=== PATIENT | male | born 1950 | race African-American/Black ===

== ENCOUNTER 2016-08-13 10:02 | Emergency (ER) | payer MEDICARE, MEDICAID ==
[2016-08-13 10:37] LABS: BASO % 0.3 % (0.0-1.0); EOS # 0.1 K/mm3 (0.0-0.50); EOS % 2.2 % (0.0-3.0); LARGE UNSTAINED CELL # 0.1 K/mm3 (0.0-0.4); LARGE UNSTAINED CELL % 2.1 % (0.0-4.0); LYMPH # 1.9 K/mm3 (1.5-4.5); LYMPH % 34.4 % (24.0-44.0); MEAN CORPUSCULAR HEMOGLOBIN 30.9 pg (27.0-33.0); MEAN CORPUSCULAR HGB CONC 32.8 g/dl (32.0-36.5); MONO # 0.3 K/mm3 (0.0-0.8); MONO % 4.5 % (0.0-5.0); NEUTROPHILS # 3.2 K/mm3 (1.8-7.7); NEUTROPHILS % 56.4 % (36.0-66.0); PLATELET COUNT, AUTOMATED 312 k/mm3 (150-450); RED CELL DISTRIBUTION WIDTH 14.2 % (11.5-14.5); WHITE BLOOD COUNT 5.6 K/mm3 (4.0-10.0)
[2016-08-13 11:05] LABS: ALBUMIN 4.1 GM/DL (3.2-5.2); ALBUMIN/GLOBULIN RATIO 1.08 (1.00-1.93); ALKALINE PHOSPHATASE 90 U/L (45-117); ALT/SGPT 21 U/L (12-78); ANION GAP 5 MEQ/L (8-16); AST/SGOT 12 U/L (15-37); BILIRUBIN,DIRECT 0.1 MG/DL (0.0-0.2); BILIRUBIN,TOTAL 0.5 MG/DL (0.2-1.0); BLOOD UREA NITROGEN 7 MG/DL (7-18); CALCIUM LEVEL 9.1 MG/DL (8.8-10.2); CARBON DIOXIDE LEVEL 32 MEQ/L (21-32); CHLORIDE LEVEL 105 MEQ/L (98-107); GLOMERULAR FILTRATION RATE > 60.0 (>49); GLUCOSE, FASTING 106 MG/DL (80-110); SODIUM LEVEL 142 MEQ/L (136-145); TOTAL PROTEIN 7.9 GM/DL (6.4-8.2)
[2016-08-13] MEDS ORDERED: ISOVUE-370 76% 100ML VIAL (Q9967) As Ordered ONE (11:07)
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
--- NOTE | 2016-08-13 13:33 | REP ---
CT ABDOMEN AND PELVIS WITH IV CONTRAST: 08/13/2016. Clinical history: Abdominal pain. Mid abdominal symptoms. Comparison: CT 12/13/2012. Technique: No oral contrast per request. Bolus of 100 mL as Isovue 370 given scanning through the abdomen pelvis with coronal and sagittal reconstructions. CT abdomen: Lung bases are clear. Heart is not enlarged. There is no pericardial thickening or effusion. I see no hiatal hernia. There is no hepatosplenomegaly, focal hepatic or splenic mass nor adjacent ascites. There is no biliary dilatation. There are multiple surgical clips from prior cholecystectomy. Pancreas grossly intact without peripancreatic inflammatory change or fluid. Adrenal glands without mass. Kidneys show function without obstruction, mass, stone, cyst or perinephric fluid. The aorta has diffuse atherosclerotic calcifications. No aneurysm or dissection. No periaortic or other retroperitoneal pathologic sized lymphadenopathy. Scattered stool and gas in the left colon, more in the transverse and right colon, but no colitis or diverticulitis. No visible appendix. Small bowel loops are not dilated but the mid and distal small bowel loops are all fluid-filled which may reflect some gastroenteritis or ileus. There is no definite obstruction. I see no mesenteric infiltration. No compression fractures in the lumbar and lower thoracic spine with very minimal degenerative change. No spondylolysis. Visualized ribs intact. CT pelvis: The bony hips, pelvis, sacrum, SI joints and lumbosacral junction show minor degenerative change but no destructive lesion, fracture or other acute finding. Bladder shows no wall thickening mass or stone. Distal ureters in the pelvis without dilatation or stone. Prostate not enlarged. Small bowel loops in the pelvis fluid-filled but not abnormally dilated and seen all the way extending to the ileocecal valve. Vascular calcification and iliac vessels without aneurysm. No ventral or inguinal hernia. Intrinsic and extrinsic pelvic hip, buttock and proximal thigh musculature symmetric and unremarkable. Impression: 1. Small bowel loops fluid-filled with no dilatation or air-fluid levels. These suggest gastroenteritis or ileus. No infiltration of the mesentery or mesenteric adenopathy. 2. There is no free air or perforation, generalized ascites, abscess or mass. 3. Prior cholecystectomy noted. The liver, spleen, adrenal glands, kidneys, pancreas, stomach, colon and bladder unremarkable. No renal, ureteral or bladder stone. No ascites, free air or acute bony finding. Signed by Romario Gorman MD 08/13/2016 07:36 P
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
== END 2016-08-13 12:29 | disposition home or self-care (01) ==
LOC: M ED 10:02
DX: K56.7 Ileus, unspecified (principal); E78.00 Pure hypercholesterolemia, unspecified; K21.9 Gastro-esophageal reflux disease without esophagitis; F17.210 Nicotine dependence, cigarettes, uncomplicated; Z79.899 Other long term (current) drug therapy
CPT/HCPCS: 36415; 74177; 80048; 80076; 81001; 83690; 85025; 99284; Q9967

== ENCOUNTER → 2016-12-21 | Outpatient (REF) | payer MEDICARE, MEDICAID ==
[2016-12-21 10:20] LABS: ALBUMIN 3.7 GM/DL (3.2-5.2); ALKALINE PHOSPHATASE 74 U/L (45-117); ALT/SGPT 27 U/L (12-78); ANION GAP 7 MEQ/L (8-16); AST/SGOT 19 U/L (15-37); BILIRUBIN,TOTAL 0.7 MG/DL (0.2-1.0); BLOOD UREA NITROGEN 6 MG/DL (7-18); CALCIUM LEVEL 9.2 MG/DL (8.8-10.2); CARBON DIOXIDE LEVEL 28 MEQ/L (21-32); CHLORIDE LEVEL 106 MEQ/L (98-107); CHOLESTEROL LEVEL 146 MG/DL (<200); CREATININE FOR GFR 0.98 MG/DL (0.70-1.30); GLOMERULAR FILTRATION RATE > 60.0 (>49); GLUCOSE, FASTING 95 MG/DL (80-110); POTASSIUM SERUM 4.1 MEQ/L (3.5-5.1); SODIUM LEVEL 141 MEQ/L (136-145); TOTAL PROTEIN 7.4 GM/DL (6.4-8.2); TRIGLYCERIDES LEVEL 85 MG/DL (<150)
== END ==
LOC: M SFHCPLAZ 07:59
PROVIDERS: ATTEND Physician Assistant
DX: R73.01 Impaired fasting glucose (principal); E78.4 Other hyperlipidemia; Z12.5 Encounter for screening for malignant neoplasm of prostate
CPT/HCPCS: 80053; 80061; 83036; G0103

== ENCOUNTER → 2017-03-15 | Outpatient (CLI) | payer MEDICARE, MEDICAID ==
[2017-03-15 15:20] LABS: BASO % 0.2 % (0.0-1.0); EOS # 0.1 K/mm3 (0.0-0.50); EOS % 1.4 % (0.0-3.0); LARGE UNSTAINED CELL # 0.1 K/mm3 (0.0-0.4); LARGE UNSTAINED CELL % 2.1 % (0.0-4.0); LYMPH # 1.8 K/mm3 (1.5-4.5); LYMPH % 37.4 % (24.0-44.0); MEAN CORPUSCULAR HEMOGLOBIN 32.3 pg (27.0-33.0); MEAN CORPUSCULAR HGB CONC 34.3 g/dl (32.0-36.5); MONO # 0.3 K/mm3 (0.0-0.8); MONO % 5.4 % (0.0-5.0); NEUTROPHILS # 2.6 K/mm3 (1.8-7.7); NEUTROPHILS % 53.4 % (36.0-66.0); PLATELET COUNT, AUTOMATED 237 k/mm3 (150-450); RED CELL DISTRIBUTION WIDTH 14.9 % (11.5-14.5); WHITE BLOOD COUNT 4.8 K/mm3 (4.0-10.0)
[2017-03-15 15:23] LABS: ALBUMIN/GLOBULIN RATIO 1.14 (1.00-1.93); ALKALINE PHOSPHATASE 70 U/L (45-117); ALT/SGPT 26 U/L (12-78); AMYLASE 50 U/L (25-115); ANION GAP 8 MEQ/L (8-16); AST/SGOT 16 U/L (15-37); BILIRUBIN,TOTAL 0.9 MG/DL (0.2-1.0); BLOOD UREA NITROGEN 13 MG/DL (7-18); CARBON DIOXIDE LEVEL 29 MEQ/L (21-32); CHLORIDE LEVEL 106 MEQ/L (98-107); CREATININE FOR GFR 0.97 MG/DL (0.70-1.30); GLOMERULAR FILTRATION RATE > 60.0 (>49); GLUCOSE, FASTING 96 MG/DL (80-110); SODIUM LEVEL 143 MEQ/L (136-145); TOTAL PROTEIN 7.5 GM/DL (6.4-8.2)
== END ==
LOC: M LAB 14:29
PROVIDERS: ATTEND Internal Medicine Gastroenterology
DX: R63.4 Abnormal weight loss (principal)

== ENCOUNTER → 2017-03-17 | Outpatient (CLI) | payer MEDICARE, MEDICAID ==
[~2017-03-17] MED LIST: GASTROGRAFIN SOLUTION 30ML (Q9963) As Ordered ONE; ISOVUE-370 76% 100ML VIAL (Q9967) As Ordered ONE
--- NOTE | 2017-03-17 17:40 | REP ---
CT abdomen and pelvis without and with IV contrast: With oral contrast. History: Abnormal weight loss and epigastric pain. Comparison study: August 13, 2016. CT contrast dose: 100 ml of Isovue 370. CT findings: Digital preliminary unishear operator radiograph demonstrates clothing artifact and clips in the right upper quadrant of the abdomen. The lung bases are clear on axial CT images. There is a left lower lobe bullous and there are mild emphysematous changes in the right lower lobe which are stable findings when compared with the prior CT study. The liver and the spleen are normal in size and homogeneous in texture on pre and post contrast CT images. No pancreatic lesion is seen. No adrenal mass is observed. The kidneys are morphologically intact and enhance symmetrically. Atherosclerotic vascular calcification is seen in a normal caliber aorta. No retroperitoneal mass or adenopathy is seen. Small bowel loops are unremarkable. There is moderate stool in the transverse colon and gas is seen in a loop of sigmoid colon. No obstructive lesion is seen. No free air is noted. A normal appendix is again noted in the right mid pelvis. No CT evidence of appendicitis. No free air or abscess is seen. No abdominal wall defect is observed. No bony destructive lesion is seen. Impression: Status post cholecystectomy. Moderate stool and gas in the colon. No obstructive lesion. Otherwise unremarkable. Normal appendix seen. Signed by Gonzalez Thakur MD 03/20/2017 07:46 A
== END ==
LOC: M RAD 14:59
PROVIDERS: ATTEND Internal Medicine Gastroenterology
DX: R63.4 Abnormal weight loss (principal); R10.13 Epigastric pain
CPT/HCPCS: 74178; Q9963; Q9967

== ENCOUNTER → 2018-09-20 | Outpatient (CLI) | payer MEDICARE, MEDICAID ==
--- NOTE | 2018-09-21 16:24 | REP ---
Clinical: Lung screening. History of nicotine dependence. Comparison: None Technique: Axial low-dose noncontrast images from the thoracic inlet to the upper abdomen using lung screening technique. Findings: The lung steinberg are well-aerated. Minimal scattered subpleural fibrosis and minimal chronic age-related interstitial changes are appreciated. Few small calcified annual material are also identified. No consolidation, significant nodule or mass lesion is appreciated. No pleural effusion/reaction or pneumothorax. Tracheobronchial tree is patent. Mediastinum demonstrates mild atherosclerotic changes of the coronary arteries without cardiomegaly. Impression: Lung-RADS category II. No nodule or suspicious abnormality. Management recommendations include annual low-dose CT evaluation. Electronically Signed by Mehdi Barkley MD 09/21/2018 04:15 P
== END ==
LOC: M RAD 08:50
PROVIDERS: ATTEND Family Medicine
DX: Z12.2 Encounter for screening for malignant neoplasm of respiratory organs (principal); Z87.891 Personal history of nicotine dependence; J84.10 Pulmonary fibrosis, unspecified; I25.10 Atherosclerotic heart disease of native coronary artery without angina pectoris

== ENCOUNTER → 2018-11-13 | Outpatient (CLI) | payer MEDICARE, MEDICAID ==
--- NOTE | 2018-11-13 09:20 | REP ---
Abdominal wall ultrasound for incisional hernia: Ultrasonography is performed over a midline anterior abdominal wall surgical scar, also including focal area of pain superior to the surgical scar. Ultrasound imaging is performed without and with Valsalva. No hernia is identified by ultrasound. Impression: No hernia is identified related to the anterior abdominal wall surgical scar by ultrasound. Electronically Signed by Ed Fiore MD 11/13/2018 09:12 A
== END ==
LOC: M RAD 07:55
PROVIDERS: ATTEND Physician Assistant Medical
DX: R10.13 Epigastric pain (principal)

== ENCOUNTER 2018-12-20 08:56 | Day surgery (SDC) | payer MEDICARE, MEDICAID ==
[~2018-12-20] VITALS: Ht 182.9 cm; Wt 70.3 kg
[~2018-12-20 08:56] MED LIST changes: +ATOR80TA59; +DICY10CA13; -GASTROGRAFIN SOLUTION 30ML (Q9963) As Ordered ONE; -ISOVUE-370 76% 100ML VIAL (Q9967) As Ordered ONE; +OMEP-218; +SUCR1TAB56
[2018-12-20] MEDS ORDERED: NS 1,000 ML IV ONE (09:30)
[2018-12-20] MEDS ORDERED: PROPOFOL 500 MG/50 ML VIAL As Ordered ONE (10:15)
[2018-12-20] MEDS ORDERED: fentaNYL 100 MCG/2 ML INJECTION (J3010) As Ordered ONE (10:15)
[2018-12-20] MEDS ORDERED: LIDOCAINE 2% INJ 100 MG/5 ML SDV (FOR ANES.) As Ordered ONE (10:15)
--- NOTE | 2018-12-20 10:25 | ROOR ---
Patient Name: Gavin Farmer Procedure Date: 12/20/2018 10:08 AM Date of : 1950 Age: 68 Room: [facility] Gender: Male Note Status: Finalized Procedure: Upper GI endoscopy Indications: Epigastric abdominal pain, Heartburn Providers: Oswaldo VALDES MD Referring MD: Pawan LA MD Requesting Provider: Medicines: Monitored Anesthesia Care Complications: No immediate complications. Procedure: Pre-Anesthesia Assessment: - The heart rate, respiratory rate, oxygen saturations, blood pressure, adequacy of pulmonary ventilation, and response to care were monitored throughout the procedure. The Endoscope was introduced through the mouth, and advanced to the second part of duodenum. The upper GI endoscopy was accomplished without difficulty. The patient tolerated the procedure well. Findings: The examined esophagus was normal. Three diminutive sessile polyps were found in the gastric antrum. Biopsies were taken with a cold forceps for histology. The exam of the stomach was otherwise normal. The examined duodenum was normal. Impression: - Normal esophagus. - Three tiny gastric polyps. Biopsied. - Small intermittent hiatal hernia. - Otherwise normal stomach. - Normal examined duodenum. Recommendation: - Observe patient's clinical course. - Follow an antireflux regimen. Oswaldo Valdes MD Oswaldo VALDES MD 12/20/2018 10:24:27 AM Electronically signed by Oswaldo VALDES MD Number of Addenda: 0 Note Initiated On: 12/20/2018 10:08 AM Estimated Blood Loss: Estimated blood loss: none.
[2018-12-20] MEDS ORDERED: ePHEDrine SULFATE 25 MG/5 ML(5MG/ML) SYRINGE As Ordered ONE (10:32)
--- NOTE | 2018-12-20 10:42 | ROOR ---
Patient Name: Gavin Farmer Procedure Date: 12/20/2018 10:09 AM Date of : 1950 Age: 68 Room: [facility] Gender: Male Note Status: Finalized Procedure: Colonoscopy Indications: High risk colon cancer surveillance: Personal history of colonic polyps, Last colonoscopy: October 2013 Providers: Oswaldo VALDES MD Referring MD: Pawan LA MD Requesting Provider: Medicines: Monitored Anesthesia Care Complications: No immediate complications. Procedure: Pre-Anesthesia Assessment: - The heart rate, respiratory rate, oxygen saturations, blood pressure, adequacy of pulmonary ventilation, and response to care were monitored throughout the procedure. The Colonoscope was introduced through the anus and advanced to the terminal ileum, with identification of the appendiceal orifice and IC valve. The colonoscopy was performed without difficulty. The patient tolerated the procedure well. The quality of the bowel preparation was good. Findings: The perianal and digital rectal examinations were normal. A 5 mm polyp was found in the hepatic flexure. The polyp was sessile. The polyp was removed with a cold snare. Resection and retrieval were complete. Small Internal Hemorrhoids. The exam was otherwise without abnormality. Impression: - One 5 mm polyp at the hepatic flexure, removed with a cold snare. Resected and retrieved. - Small Internal Hemorrhoids. - The examination was otherwise normal. Recommendation: - Repeat colonoscopy in 5 years for surveillance. Oswaldo Valdes MD Oswaldo VALDES MD 12/20/2018 10:42:23 AM Electronically signed by Oswaldo VALDES MD Number of Addenda: 0 Note Initiated On: 12/20/2018 10:09 AM Estimated Blood Loss: Estimated blood loss: none.
[2018-12-20 11:05] VITALS: BP 108/61
== END 2018-12-20 11:12 | disposition home or self-care (01) ==
LOC: M OPP 08:56
PROVIDERS: ATTEND Internal Medicine Gastroenterology
DX: Z12.11 Encounter for screening for malignant neoplasm of colon (principal); Z86.010 Personal history of colon polyps; D12.3 Benign neoplasm of transverse colon; K64.8 Other hemorrhoids; K31.7 Polyp of stomach and duodenum; R10.13 Epigastric pain; R12 Heartburn; F17.210 Nicotine dependence, cigarettes, uncomplicated; Z79.899 Other long term (current) drug therapy
CPT/HCPCS: 43239; 45385; 88305; J3010

== ENCOUNTER → 2019-02-07 | Outpatient (REF) | payer MEDICARE, MEDICAID ==
[2019-02-07 13:34] LABS: CHOLESTEROL LEVEL 129 MG/DL (<200); CHOLESTEROL RISK RATIO 3.394 (<5); HDL CHOLESTEROL 38 MG/DL (>40); LDL CHOLESTEROL 77 MG/DL (<100); NON-HDL-C 91 MG/DL; TRIGLYCERIDES LEVEL 69 MG/DL (<150)
[2019-02-07 13:46] LABS: H PYLORI QUALITATIVE IgG DETECTED (NEGATIVE)
[2019-02-07 14:11] LABS: HEMOGLOBIN A1c 6.2 %
== END ==
LOC: M SFHCPLAZ 09:45
PROVIDERS: ATTEND Family Medicine
DX: R10.13 Epigastric pain (principal); E78.5 Hyperlipidemia, unspecified; R73.01 Impaired fasting glucose
CPT/HCPCS: 36415; 80061; 83036; 86677; G0463

== ENCOUNTER → 2019-03-14 | Outpatient (REF) | payer MEDICARE, MEDICAID ==
[2019-03-14 12:55] LABS: HEMATOCRIT 42.6 % (42.0-52.0); HEMOGLOBIN 14.3 g/dl (13.5-17.5); MEAN CORPUSCULAR HEMOGLOBIN 32.1 pg (27.0-33.0); MEAN CORPUSCULAR HGB CONC 33.6 g/dl (32.0-36.5); MEAN CORPUSCULAR VOLUME 95.5 fl (80.0-96.0); PLATELET COUNT, AUTOMATED 234 10^3/uL (150-450); RED BLOOD COUNT 4.46 10^6/uL (4.30-6.10); WHITE BLOOD COUNT 4.8 10^3/uL (4.0-10.0)
== END ==
LOC: M SFHCPLAZ 10:14
PROVIDERS: ATTEND Family Medicine
DX: K92.1 Melena (principal)

== ENCOUNTER 2019-04-17 15:14 | Inpatient (IN) | payer MEDICARE, MEDICAID ==
[~2019-04-17] VITALS: Ht 182.9 cm; Wt 75.1 kg
[~2019-04-17 15:14] MED LIST changes: -ATOR80TA59; +ATOR80TA59 PO; -DICY10CA13; +DICY10CA13 PO; -OMEP-218; +OMEP-218 PO; -SUCR1TAB56; +SUCR1TAB56 PO
[2019-04-17] MEDS ORDERED: PEG1POW PO (15:35)
[2019-04-17] MEDS ORDERED: METF500T13 PO (15:35)
[2019-04-17 16:00] LABS: BASO % 0.2 % (0.0-1.0); EOS # 0.1 10^3/uL (0.0-0.5); EOS % 0.6 % (0.0-3.0); HEMATOCRIT 34.1 % (42.0-52.0); HEMOGLOBIN 11.7 g/dl (13.5-17.5); LYMPH % 11.5 % (24.0-44.0); MEAN CORPUSCULAR HEMOGLOBIN 32.4 pg (27.0-33.0); MEAN CORPUSCULAR HGB CONC 34.3 g/dl (32.0-36.5); MEAN CORPUSCULAR VOLUME 94.5 fl (80.0-96.0); MONO # 0.2 10^3/uL (0.0-0.8); MONO % 1.7 % (0.0-5.0); NEUTROPHILS # 7.5 10^3/uL (1.5-8.5); NEUTROPHILS % 85.7 % (36.0-66.0); PLATELET COUNT, AUTOMATED 174 10^3/uL (150-450); RED BLOOD COUNT 3.61 10^6/uL (4.30-6.10); WHITE BLOOD COUNT 8.8 10^3/uL (4.0-10.0)
[2019-04-17] MEDS ORDERED: NS 1,000 ML IV ONE ×2 (16:00→16:45)
[2019-04-17] MEDS ORDERED: ACETAMINOPHEN 325 MG TAB PO ONE (16:00)
--- NOTE | 2019-04-17 16:25 | REP ---
Two views chest: 04/17/2019. Indication: Dyspnea. Findings: The hyperinflated lungs are clear. There is no pleural effusion or pneumothorax. Cardiac silhouette is within normal limits. Impression: Clear lungs. Electronically Signed by Luis Giles DO 04/17/2019 04:17 P
[2019-04-17 16:33] LABS: ALBUMIN 3.2 GM/DL (3.2-5.2); ALT/SGPT 30 U/L (12-78); BILIRUBIN,DIRECT 0.3 MG/DL (0.0-0.2); BLOOD UREA NITROGEN 9 MG/DL (7-18); CALCIUM LEVEL 8.4 MG/DL (8.8-10.2); CARBON DIOXIDE LEVEL 24 MEQ/L (21-32); CHLORIDE LEVEL 106 MEQ/L (98-107); CREATININE FOR GFR 1.12 MG/DL (0.70-1.30); GLOMERULAR FILTRATION RATE > 60.0 (>49); GLUCOSE, FASTING 94 MG/DL (70-100); POTASSIUM SERUM 3.7 MEQ/L (3.5-5.1); SODIUM LEVEL 139 MEQ/L (136-145); TOTAL PROTEIN 5.9 GM/DL (6.4-8.2)
[2019-04-17] MEDS ORDERED: ONDANSETRON 4MG/2ML VIAL (J2405) IV ONE (16:45)
[2019-04-17 16:49] LABS: INFLUENZA A AMPLIFICATION NEGATIVE (NEGATIVE); INFLUENZA B AMPLIFICATION NEGATIVE (NEGATIVE)
[2019-04-17] MEDS ORDERED: NOREPINEPHRINE BITARTRATE 8 MG in D5W 492 ML IV SCH (17:34)
[2019-04-17] MEDS ORDERED: PIPERACILLIN/TAZOBACTAM SOD 4.5 GM in D5W MINI-BAG PLUS 50 ML IV ONE (17:45)
[2019-04-17] MEDS ORDERED: NS 2,050 ML in IV 1 EA IV ONE (17:45)
[2019-04-17] MEDS ORDERED: ISOVUE-370 76% 100ML VIAL (Q9967) As Ordered ONE (19:48)
[2019-04-17] MEDS ORDERED: PEGPOW PO (20:12)
[2019-04-17 20:22] LABS: CK-MB VALUE MASS < 1.0 NG/ML (<3.6); CPK CREATINE PHOSPHOKINASE 71 U/L (39-308); MB/CK RELATIVE INDEX 1.41 (< OR =4); TROPONIN I 0.03 NG/ML (< 0.10)
--- NOTE | 2019-04-17 20:34 | REPVR ---
PROCEDURE INFORMATION: Exam: CT Abdomen And Pelvis With Contrast Exam date and time: 04/17/2019 7:50 PM Clinical history: 68 years old, male; Fever TECHNIQUE: Imaging protocol: Computed tomography of the abdomen and pelvis with intravenous contrast. Radiation optimization: All CT scans at this facility use at least one of these dose optimization techniques: automated exposure control; mA and/or kV adjustment per patient size (includes targeted exams where dose is matched to clinical indication); or iterative reconstruction. Contrast material: ISOVUE 370; Contrast volume: 100 ml; Contrast route: IV; COMPARISON: CT ABD PELVIS W/O FOL BY WIT 03/17/2017 4:30 PM FINDINGS: Lungs: Dependent opacities within the lung bases, likely atelectasis. Bilateral basilar pulmonary emphysema, unchanged. Liver: Unremarkable. No mass. Gallbladder and bile ducts: Status post cholecystectomy. Pancreas: Unremarkable. No ductal dilation. The Spleen: Unremarkable. No splenomegaly. Adrenals: Normal. No mass. Kidneys and ureters: Unremarkable. No stones. No hydronephrosis. Stomach and bowel: Unremarkable. No obstruction. No mucosal thickening. Appendix: No evidence of appendicitis. Intraperitoneal space: Unremarkable. No free air. No significant fluid collection. Vasculature: Atherosclerosis throughout the abdominal aorta and branch vessels. No aneurysm. Lymph nodes: Unremarkable. No enlarged lymph nodes. Bladder: Mild wall thickening of the urinary bladder is likely secondary to underdistention. Cystitis is not excluded. Reproductive: Unremarkable as visualized. Bones/joints: Degenerative spondylosis of the lumbar spine. 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 Soft tissues: Unremarkable. IMPRESSION: 1. No acute abnormality. 2. Mild wall thickening of the urinary bladder is likely secondary to underdistention. Cystitis is not excluded. Electronically signed by: Victor Hugo Wheat On 04/17/2019 20:32:54 PM
[2019-04-17] MEDS ORDERED: MOM 30ML SUSPENSION UDC PO PRN (22:00)
--- NOTE | 2019-04-17 22:01 | HPEPDOC ---
General Date of Admission 04/17/19 Date of Service: Apr 17, 2019 Primary Care Physician: REGINA HANKINS NP Chief Complaint The patient is a 68-year-old male admitted with a reason for visit of Flu Like Symptoms. Source: Patient Exam Limitations: No limitations Timing/Duration: Other Severity: Moderate (this morning) Associated Symptoms: Fever, Chills, Hypotension, Other (, abdominal pain) History of Present Illness This is a 68 years old -[place] male with past medical history of anemia, emphysema, hyperlipidemia, active smoker presented with chief complaints of fever, chills, nausea, abdominal pain since early this morning when he woke up at 4 AM. Abdominal pain is dull, lower and lower in location, nonradiating, persistent not not relieved with metastases and not exacerbated by food, not associated with vomiting, diarrhea. Denies chest pain, dizziness, focal weakness, etc. Home Medications Scheduled Atorvastatin Calcium (Atorvastatin Calcium) 80 Mg Tablet, 80 MG PO DAILY, (Reported) Metformin HCl (Metformin HCl) 500 Mg Tablet, 1,000 MG PO BIDWM, (Reported) Omeprazole (Omeprazole) 20 Mg Capsule.dr, 20 MG PO BID, (Reported) Sucralfate (Sucralfate) 1 Gm Tablet, 1 GM PO DAILY, (Reported) Scheduled PRN Dicyclomine HCl (Dicyclomine HCl) 10 Mg Capsule, 10 MG PO WM PRN for IRRITABLE BOWEL, (Reported) Polyethylene Glycol 3350 (Polyethylene Glycol 3350) 510 Gm Powder, 17 GM PO DAILY PRN for CONSTIPATION, (Reported) Allergies Coded Allergies: No Known Allergies (Unverified , 12/07/18) Past Medical History Medical History Anemia, emphysema, hyperlipidemia Surgical History Stable and surgery right side of the abdomen Family History Significant Family History: No pertinent family hx Social History * Smoker: current smoker Alcohol: Denies Drugs: denies A-FIB/CHADSVASC A-FIB History Current/History of A-Fib/PAF?: No Review of Systems Constitutional: Reports: Chills, Fever, Weakness Eyes: Denies: Pain, Vision change, Conjunctivae inflammation, Eyelid inflammation, Redness, Other ENT: Denies: Head Aches, Ear Pain, Dysphagia, Sinus Congestion, Post Nasal Drip, Sore Throat, Epistaxis, Other Symptoms Skin: Denies: Rash, Lesions, Jaundice, Bruising, Itching, Dry, Breakdown, Nail Changes, Other Pulmonary: Denies: Dyspnea, Cough, Pleuritic Chest Pain, Other Symptoms Gastrointestinal: Reports: Nausea, Abdominal Pain Genitourinary: Denies: Dysuria, Frequency, Incontinence, Hematuria, Retention, Other Symptoms Hematologic: Denies: Bruising, Bleeding Excessively, Petecchia, Purpura, Enlarged Lymph Nodes, Other Hematologic Endocrine: Denies: Polydipsia, Polyphagia, Polyuria, Heat Intolerance, Cold Intolerance, Other Endocrine Sx Musculoskeletal: Denies: Neck Pain, Back Pain, Shoulder Pain, Arm Pain, Hand Pain, Leg Pain, Foot Pain, Joint Pain, Muscle Pain, Spasms, Other Symptoms Neurological: Denies: Weakness, Numbness, Incoordination, Change in speech, Confusion, Seizures, Other Symptoms Psych: Denies: Mood Normal, Anxiety, Depression, Memory Issues, Thoughts of Self Harm, Anger, Thoughts of Harming Other, Other Psych Physical Examination General Exam: Positive: Alert, Cooperative Eye Exam: Positive: PERRLA, Conjunctiva & lids normal ENT Exam: Positive: Atraumatic, Mucous membr. moist/pink Neck Exam: Positive: Supple Chest Exam: Positive: Clear to auscultation, Normal air movement Heart Exam: Positive: Rate Normal, Normal S1, Normal S2 Abdomen Exam: Positive: Normal bowel sounds, Soft, Tenderness (, mild lower abdominal tenderness on deep palpation) Extremity Exam: Positive: Normal pulses Skin Exam: Positive: Nl turgor and temperature Neuro Exam: Positive: Strength at 5/5 X4 ext, Sensation Intact Psych Exam: Positive: Mental status NL, Mood NL, Oriented x 3 Vital Signs Vital Signs Date Time Temp Pulse Resp B/P (MAP) Pulse Ox O2 Delivery O2 Flow Rate FiO2 04/17/19 21:25 98.4 04/17/19 21:10 78 86/50 (62) 98 Room Air 04/17/19 20:55 18 Laboratory Data Labs 24H Laboratory Tests 2 04/17/19 15:45: Immature Granulocyte % (Auto) 0.3, Neutrophils (%) (Auto) 85.7H, Lymphocytes (%) (Auto) 11.5L, Monocytes (%) (Auto) 1.7, Eosinophils (%) (Auto) 0.6, Basophils (%) (Auto) 0.2, Neutrophils # (Auto) 7.5, Lymphocytes # (Auto) 1.0L, Monocytes # (Auto) 0.2, Eosinophils # (Auto) 0.1, Basophils # (Auto) 0.0, Nucleated Red Blood Cells % (auto) 0.0, Anion Gap 9, Glomerular Filtration Rate > 60.0, Lactic Acid Level 3.6*H, Calcium Level 8.4L, Total Bilirubin 1.0, Direct Bilirubin 0.3 H, Aspartate Amino Transf (AST/SGOT) 9, Alanine Aminotransferase (ALT/SGPT) 30, Alkaline Phosphatase 53, Total Protein 5.9L, Albumin 3.2, Albumin/Globulin Ratio 1.19 04/17/19 15:59: Influenza Type A (RT-PCR) NEGATIVE, Influenza Type B (RT-PCR) NEGATIVE 04/17/19 19:44: Total Creatine Kinase 71, Creatine Kinase MB < 1.0, Creatine Kinase MB Relative Index 1.41, Troponin I 0.03 04/17/19 19:45: Urine Color YELLOW, Urine Appearance CLOUDYH, Urine pH 5.0, Urine Specific [place] 1.011, Urine Protein 1+H, Urine Glucose (UA) NEGATIVE, Urine Ketones NEGATIVE, Urine Blood 2+H, Urine Nitrite POSITIVEH, Urine Bilirubin NEGATIVE, Urine Urobilinogen 0.2, Urine Leukocyte Esterase 3+H, Urine WBC (Auto) 143H, Urine RBC (Auto) 33H, Urine Hyaline Casts (Auto) 0, Urine Bacteria (Auto) 1+H, Urine Squamous Epithelial Cells 0, Urine Mucus (Auto) SMALL, Urine Sperm (Auto) 04/17/19 20:46: Lactic Acid Followup at 4 Hours 1.0 CBC/BMP Laboratory Tests 04/17/19 15:45 Microbiology Microbiology 04/17/19 Urine Culture, Received Pending 04/17/19 Blood Culture, Received Pending 04/17/19 Blood Culture, Received Pending Problems (1) Sepsis Status: Acute Problem Text: , 68 years old -[place] male with past medical history of anemia, emphysema, hyperlipidemia, developed fever, chills, weakness, abdominal pain and nausea since 4:00 this morning when he woke up, which is been probably is getting worse and he was brought to ER. In ED, was found to be hypertensive. It started first with IV fluids O on. On Levophed to maintain his blood pressure Patient's sepsis, most likely secondary to cystitis which is evident on CT of the abdomen, pelvis and urine and dialysis also indicated of urine infection Admitted to ICU for close monitoring IV fluid normal saline 150 mL per hour Also give bolus of IV fluid of the blood pressure has to be maintained and the MAP is to be maintained more than 70 We'll try to wean off Levophed was the patient is in ICU Continue Zosyn 3.375 mg IV piggyback every 6 hours Dark Vanco 1 g IV piggyback every 12 hours Bed rest Regular diet DVT prophylaxis with Lovenox Continue home meds (2) Hypotension Status: Acute Plan / VTE VTE Prophylaxis Ordered?: Yes LIZETH VALENCIA MD Apr 17, 2019 22:01
[2019-04-17] MEDS: NS 1,000 ML IV SCH (22:07)
[2019-04-17] MEDS ORDERED: VANCOMYCIN HCL 1,000 MG, VIAL MATE ADAPTER 1 EACH in D5W 250 ML IV ONE (22:30)
[2019-04-17] MEDS: PIPERACILLIN/TAZOBACTAM SOD 3.375 GM in D5W MINI-BAG PLUS 50 ML IV SCH (23:59)
[2019-04-18] VITALS (24 sets, daily range): BP systolic 73–119; BP diastolic 38–63
[2019-04-18] MEDS: VANCOMYCIN HCL 1,000 MG, VIAL MATE ADAPTER 1 EACH in D5W 250 ML IV SCH ×2 (01:54→12:24)
--- NOTE | 2019-04-18 04:46 | PHACANCOPD ---
PHARMACY VANCOMYCIN DOSING Pt Demographics Demographics Patient Age:68 , Weight:73.900 , Gender: male Adjusted Body Weight Date: 04/18/19, Adjusted Body Weight: [68.2] Kg Vancomycin Vancomycin indication: SEPSIS/CYSTITIS Vancomycin Target Ranges: 15-20 mcg/ml Vancomycin Load Y/N: Yes Load Dose Date Time Vancomycin Load Dose: 2GM Date: 04/17 Time: 4188-7092 Vancomycin Dose Date: 04/18/19. Current Vancomycin Dose: [1GM Q12H] Intermittent Dosing?: No Labs Micro Microbiology 04/17/19 Urine Culture, Received Pending 04/17/19 Blood Culture, Received Pending 04/17/19 Blood Culture, Received Pending Creatinine Clearance Date:04/18/19. Creatinine Clearance: . Assessment and Plan Maintaining Current Dose?: Yes Reason for dose change: No Dose Change Pharmacist Note Pharmacist Note Date: 04/18/19. Pharmacist note:68 YOM,ADMITTED W/ SEPSIS SECONDARY TO CYSTITIS.6',68.2KG,SCR=1.12,CALCULATED CRCL=60.ABX TX= PIP/TAZO 3.375 Q6H and Pharmacy dosed Vancomycin.Patient received Vanco 1 gram @2300& 0100, then will begin a regimen of 1 gram iv [id number]. First trough is scheduled 04/19@12mid.- will continue to followlabs and make adjustments as necessary. GENEVIEVE RAHMAN PHARMACY Apr 18, 2019 04:45
[2019-04-18] MEDS: PIPERACILLIN/TAZOBACTAM SOD 3.375 GM in D5W MINI-BAG PLUS 50 ML IV SCH ×3 (05:39→18:07)
[2019-04-18] MEDS: NS 1,000 ML IV SCH ×3 (05:40→18:07)
[2019-04-18] MEDS: ACETAMINOPHEN TAB 650MG DOSE (2X325MG) PO PRN ×2 (06:42→18:08)
[2019-04-18 07:01] LABS: HEMATOCRIT 28.9 % (42.0-52.0); MEAN CORPUSCULAR HEMOGLOBIN 32.3 pg (27.0-33.0); MEAN CORPUSCULAR HGB CONC 33.6 g/dl (32.0-36.5); MEAN CORPUSCULAR VOLUME 96.3 fl (80.0-96.0); PLATELET COUNT, AUTOMATED 136 10^3/uL (150-450); WHITE BLOOD COUNT 7.4 10^3/uL (4.0-10.0)
[2019-04-18 07:02] LABS: HEMOGLOBIN 9.7 g/dl (13.5-17.5)
[2019-04-18 07:26] LABS: ALBUMIN 2.3 GM/DL (3.2-5.2); ALT/SGPT 32 U/L (12-78); BILIRUBIN,TOTAL 0.9 MG/DL (0.2-1.0); BLOOD UREA NITROGEN 9 MG/DL (7-18); CARBON DIOXIDE LEVEL 23 MEQ/L (21-32); CHLORIDE LEVEL 112 MEQ/L (98-107); CREATININE FOR GFR 0.89 MG/DL (0.70-1.30); GLOMERULAR FILTRATION RATE > 60.0 (>49); GLUCOSE, FASTING 115 MG/DL (70-100); POTASSIUM SERUM 3.7 MEQ/L (3.5-5.1); SODIUM LEVEL 140 MEQ/L (136-145); TOTAL PROTEIN 4.9 GM/DL (6.4-8.2)
[2019-04-18] MEDS: DOCUSATE SODIUM 100 MG CAP PO SCH ×2 (09:21→20:31)
[2019-04-18] MEDS: ENOXAPARIN 40 MG/0.4 ML SYRINGE (J1650) SC SCH (09:22)
--- NOTE | 2019-04-18 15:30 | ECGEPIP ---
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
--- NOTE | 2019-04-18 16:37 | IPNPDOC ---
Date Seen The patient was seen on 04/18/19. Progress Note SUBJECTIVE: Patient appeared comfortable in bed, denies any complaints including pain or dysuria. BP labile but has improve throughout the morning. Afebrile. OBJECTIVE PHYSICAL EXAMINATION: VITAL SIGNS: Please see below. General: No acute distress, Alert Eyes: Normal sclera, EOMI, RAJI HENT: Atraumatic, neck supple, moist mucous membranes Cardiovascular: Normal rate, normal rhythm. No murmurs appreciated. Pulmonary: Clear to auscultation b/l, no wheezing GI: Soft, nontender, nondistended Skin: Warm and dry Neuro: CN grossly intact. No focal deficits. Strengths equal b/l. Psych: oriented x 3 LABORATORY DATA, IMAGING STUDIES, MICROBIOLOGY: Please see below. DVT prophylaxis ordered?: Lovenox ASSESSMENT AND PLAN: 1. Sepsis - Likely 2/2 UTI. Severe hypotension, lactic acidosis and febrile on presentation but no leukocytosis. - Urine + LE, WBC and Nitrite. - f/u blood and urine culture. - c/w broad spectrum Abx for now pending blood and urine cultures. De-escalate Abx when possible and when patient more stable. 2. DM - On metformin at home. Hold at this time. C/w ISS. 3. HLD - Resume statin. VS, I&O, 24H, Fishbone Vital Signs/I&O Vital Signs Date Time Temp Pulse Resp B/P (MAP) Pulse Ox O2 Delivery O2 Flow Rate FiO2 04/18/19 13:00 75 21 111/55 (73) 99 04/18/19 12:00 98.2 04/18/19 00:44 Room Air I&O- Last 24 Hours up to 6 AM 04/18/19 06:00 Intake Total 5490 ml Balance 5490 ml Laboratory Data 24H LABS Laboratory Tests 2 04/17/19 19:44: Total Creatine Kinase 71, Creatine Kinase MB < 1.0, Creatine Kinase MB Relative Index 1.41, Troponin I 0.03 04/17/19 19:45: Urine Color YELLOW, Urine Appearance CLOUDYH, Urine pH 5.0, Urine Specific [place] 1.011, Urine Protein 1+H, Urine Glucose (UA) NEGATIVE, Urine Ketones NEGATIVE, Urine Blood 2+H, Urine Nitrite POSITIVEH, Urine Bilirubin NEGATIVE, Urine Urobilinogen 0.2, Urine Leukocyte Esterase 3+H, Urine WBC (Auto) 143H, Urine RBC (Auto) 33H, Urine Hyaline Casts (Auto) 0, Urine Bacteria (Auto) 1+H, Urine Squamous Epithelial Cells 0, Urine Mucus (Auto) SMALL, Urine Sperm (Auto) 04/17/19 20:46: Lactic Acid Followup at 4 Hours 1.0 04/18/19 06:39: Nucleated Red Blood Cells % (auto) 0.0, Anion Gap 5L, Glomerular Filtration Rate > 60.0, Lactic Acid Level 1.1, Calcium Level 7.0#L, Total Bilirubin 0.9, Aspartate Amino Transf (AST/SGOT) 20, Alanine Aminotransferase (ALT/SGPT) 32, Alkaline Phosphatase 43L, Total Protein 4.9L, Albumin 2.3#L, Albumin/Globulin Ratio 0.88L CBC/BMP Laboratory Tests 04/18/19 06:39 Microbiology Microbiology 04/17/19 Urine Culture, Received Pending 04/17/19 Blood Culture - Preliminary, Resulted No growth after 24 hours . All specim... 04/17/19 Blood Culture - Preliminary, Resulted No growth after 24 hours . All specim... BLAYNE LIU MD Apr 18, 2019 16:37
[2019-04-18] MEDS ORDERED: MIRALAX *UNIT DOSE* 17GM PACKET PO PRN (16:45)
[2019-04-18] MEDS ORDERED: GLUCAGON FOR INJ 1 MG VIAL (J1610) SC PRN (17:00)
[2019-04-18] MEDS ORDERED: DEXTROSE 50% 50 ML SYRINGE IV PRN (17:00)
[2019-04-18] MEDS: HumaLOG INSULIN (NovoLOG) PER UNIT SC SCH (17:30)
[2019-04-18] MEDS ORDERED: GLUCOSE 4 GM CHEW TABLET PO PRN (18:00)
[2019-04-18] MEDS ORDERED: DICYCLOMINE 10 MG CAP PO PRN (18:00)
[2019-04-18] MEDS: ATORVASTATIN 20 MG TAB PO SCH (18:07)
[2019-04-18] MEDS: SUCRALFATE 1 GM TAB PO SCH (18:10)
[2019-04-18] MEDS: OMEPRAZOLE 20 MG CAP PO SCH (20:31)
[2019-04-18] MEDS ORDERED: HumaLOG INSULIN (NovoLOG) PER UNIT SC SCH (21:00)
[2019-04-18] MEDS: MAALOX 30 ML SUSP *UDC PO PRN (23:59)
[2019-04-19] VITALS (13 sets, daily range): BP systolic 102–151; BP diastolic 52–65
[2019-04-19] MEDS: PIPERACILLIN/TAZOBACTAM SOD 3.375 GM in D5W MINI-BAG PLUS 50 ML IV SCH ×3 (00:10→11:57)
[2019-04-19] MEDS: VANCOMYCIN HCL 1,000 MG, VIAL MATE ADAPTER 1 EACH in D5W 250 ML IV SCH (01:04)
--- NOTE | 2019-04-19 01:16 | PHACANCOPD ---
PHARMACY VANCOMYCIN DOSING Pt Demographics Demographics Patient Age:68 , Weight:73.900 , Gender: male Adjusted Body Weight Date: 04/18/19, Adjusted Body Weight: [73.9] Kg Events Past 24 Hours Events Past 24 Hours: NO: Dialysis, Diuretic Therapy, Change in CrCl, Fever, Elevation in WBC, Pending Diagnostics, Pending Procedures, Other Vancomycin Vancomycin indication: SEPSIS/CYSTITIS Vancomycin Target Ranges: 15-20 mcg/ml Vancomycin Load Y/N: Yes Load Dose Date Time Vancomycin Load Dose: 2GM Date: 04/17 Time: 8221-3510 Vancomycin Dose Date: 04/19/19. Current Vancomycin Dose: [750MG IV Q8H] Date: 04/18/19. Current Vancomycin Dose: [1GM Q12H] Intermittent Dosing?: No Labs Labs Item Value Date Time White Blood Count 8.8 10^3/uL 04/17/19 1545 White Blood Count 7.4 10^3/uL 04/18/19 0639 Creatinine 0.89 MG/DL 04/18/19 0639 Creatinine 1.12 MG/DL 04/17/19 1545 Vancomycin Level Trough 11.2 UG/ML 04/18/19 2356 Micro Microbiology 04/17/19 Urine Culture, Received Pending 04/17/19 Blood Culture - Preliminary, Resulted No growth after 24 hours . All specim... 04/17/19 Blood Culture - Preliminary, Resulted No growth after 24 hours . All specim... Creatinine Clearance Date:04/18/19. Creatinine Clearance: [86ML/MIN]. Pending Labs VANCOMYCIN TROUGH 04/20/19 @0800 Assessment and Plan Maintaining Current Dose?: No Reason for dose change: Trough too low Pharmacist Note Pharmacist Note Date: 04/19/19. Pharmacist note:Pt trough came back this evening @ 11.2 mcg/ml. Dosing will be changed to 750mg IV every 8 hours starting 04/19/19 @0900. Another trough is scheduled for 04/20/19 @08:00. We will continue to monitor and adjust the dose as needed. Date: 04/18/19. Pharmacist note:68 YOM,ADMITTED W/ SEPSIS SECONDARY TO CYSTITIS.6',68.2KG,SCR=1.12,CALCULATED CRCL=60.ABX TX= PIP/TAZO 3.375 Q6H and Pharmacy dosed Vancomycin.Patient received Vanco 1 gram @2300& 0100, then will begin a regimen of 1 gram iv [id number]. First trough is scheduled 04/19@12mid.- will continue to followlabs and make adjustments as necessary. CANDACE LEYVA PHARMACY Apr 19, 2019 01:16
[2019-04-19] MEDS: NS 1,000 ML IV SCH ×2 (05:06→07:20)
[2019-04-19 05:13] LABS: HEMATOCRIT 30.2 % (42.0-52.0); MEAN CORPUSCULAR HEMOGLOBIN 31.5 pg (27.0-33.0); MEAN CORPUSCULAR HGB CONC 33.1 g/dl (32.0-36.5); MEAN CORPUSCULAR VOLUME 95.3 fl (80.0-96.0); PLATELET COUNT, AUTOMATED 155 10^3/uL (150-450); RED BLOOD COUNT 3.17 10^6/uL (4.30-6.10); WHITE BLOOD COUNT 5.4 10^3/uL (4.0-10.0)
[2019-04-19 05:31] LABS: BLOOD UREA NITROGEN 7 MG/DL (7-18); CALCIUM LEVEL 7.3 MG/DL (8.8-10.2); CARBON DIOXIDE LEVEL 24 MEQ/L (21-32); CHLORIDE LEVEL 116 MEQ/L (98-107); CREATININE FOR GFR 0.93 MG/DL (0.70-1.30); GLOMERULAR FILTRATION RATE > 60.0 (>49); GLUCOSE, FASTING 91 MG/DL (70-100); POTASSIUM SERUM 3.7 MEQ/L (3.5-5.1); SODIUM LEVEL 144 MEQ/L (136-145)
[2019-04-19] MEDS: HumaLOG INSULIN (NovoLOG) PER UNIT SC SCH ×2 (07:30→11:57)
[2019-04-19] MEDS: ATORVASTATIN 20 MG TAB PO SCH (08:29)
[2019-04-19] MEDS: ENOXAPARIN 40 MG/0.4 ML SYRINGE (J1650) SC SCH (08:29)
[2019-04-19] MEDS: SUCRALFATE 1 GM TAB PO SCH (08:30)
[2019-04-19] MEDS: DOCUSATE SODIUM 100 MG CAP PO SCH ×2 (08:30→20:28)
[2019-04-19] MEDS: OMEPRAZOLE 20 MG CAP PO SCH ×2 (08:30→20:28)
[2019-04-19] MEDS: ACETAMINOPHEN TAB 650MG DOSE (2X325MG) PO PRN ×3 (08:41→20:28)
[2019-04-19] MEDS ORDERED: VANCOMYCIN HCL 750 MG, VIAL MATE ADAPTER 1 EACH in D5W 250 ML IV SCH (09:00)
--- NOTE | 2019-04-19 12:32 | IPNPDOC ---
Date Seen The patient was seen on 04/19/19. Progress Note SUBJECTIVE: Patient sitting up in bed eating breakfast comfortably. Denies any compliants. Afebrile overnight. BP much more stable today. MAP now 70-80s. Urine culture + E. coli OBJECTIVE PHYSICAL EXAMINATION: VITAL SIGNS: Please see below. General: No acute distress, Alert Eyes: Normal sclera, EOMI, RAJI HENT: Atraumatic, neck supple, moist mucous membranes Cardiovascular: Normal rate, normal rhythm. No murmurs appreciated. Pulmonary: Clear to auscultation b/l, no wheezing GI: Soft, nontender, nondistended Skin: Warm and dry Neuro: CN grossly intact. No focal deficits. Strengths equal b/l. Psych: oriented x 3 LABORATORY DATA, IMAGING STUDIES, MICROBIOLOGY: Please see below. DVT prophylaxis ordered?: Lovenox ASSESSMENT AND PLAN: 1. Sepsis - Likely 2/2 UTI. Severe hypotension, lactic acidosis and febrile on presentation but no leukocytosis. - Urine + E. coli. - Blood culture NTD. - change Abx to rocephin. 2. DM - On metformin at home. Hold at this time. C/w ISS. 3. HLD - Resume statin. VS, I&O, 24H, Fishbone Vital Signs/I&O Vital Signs Date Time Temp Pulse Resp B/P (MAP) Pulse Ox O2 Delivery O2 Flow Rate FiO2 04/19/19 12:00 99.0 75 20 122/57 (78) 94 Room Air I&O- Last 24 Hours up to 6 AM 04/19/19 06:00 Intake Total 5050 ml Output Total 1800 ml Balance 3250 ml Laboratory Data 24H LABS Laboratory Tests 2 04/18/19 17:58: Bedside Glucose (Misc Panel) 128H 04/18/19 20:22: Bedside Glucose (Misc Panel) 107 04/18/19 23:56: Vancomycin Level Trough 11.2 04/19/19 04:49: Nucleated Red Blood Cells % (auto) 0.0, Anion Gap 4L, Glomerular Filtration Rate > 60.0, Calcium Level 7.3L 04/19/19 07:40: Bedside Glucose (Misc Panel) 95 04/19/19 11:54: Bedside Glucose (Misc Panel) 92 CBC/BMP Laboratory Tests 04/19/19 04:49 Microbiology Microbiology 04/17/19 Urine Culture - Final, Complete Escherichia Coli 04/17/19 Blood Culture - Preliminary, Resulted No growth after 24 hours . All specim... 04/17/19 Blood Culture - Preliminary, Resulted No growth after 24 hours . All specim... BLAYNE LIU MD Apr 19, 2019 12:32
[2019-04-19] MEDS: cefTRIAXone SOD 2 GM in D5W MINI-BAG PLUS 50 ML IV SCH (17:45)
[2019-04-20 04:00] VITALS: BP 129/59
[2019-04-20] MEDS: MAALOX 30 ML SUSP *UDC PO PRN (04:14)
[2019-04-20 05:09] LABS: BLOOD UREA NITROGEN 5 MG/DL (7-18); CARBON DIOXIDE LEVEL 25 MEQ/L (21-32); CHLORIDE LEVEL 112 MEQ/L (98-107); CREATININE FOR GFR 0.96 MG/DL (0.70-1.30); GLOMERULAR FILTRATION RATE > 60.0 (>49); GLUCOSE, FASTING 98 MG/DL (70-100); POTASSIUM SERUM 3.6 MEQ/L (3.5-5.1); SODIUM LEVEL 143 MEQ/L (136-145)
[2019-04-20 08:00] VITALS: BP 134/60
[2019-04-20] MEDS: DOCUSATE SODIUM 100 MG CAP PO SCH ×2 (09:00→20:02)
[2019-04-20] MEDS: OMEPRAZOLE 20 MG CAP PO SCH ×2 (10:14→20:02)
[2019-04-20] MEDS: ATORVASTATIN 20 MG TAB PO SCH (10:14)
[2019-04-20] MEDS: ENOXAPARIN 40 MG/0.4 ML SYRINGE (J1650) SC SCH (10:14)
[2019-04-20] MEDS: SUCRALFATE 1 GM TAB PO SCH (10:14)
--- NOTE | 2019-04-20 12:20 | IPNPDOC ---
Date Seen The patient was seen on 04/20/19. Progress Note SUBJECTIVE: Patient reports feeling fine without discomfort but noted to have hematuria overnight. Also Tmax 100.4. WBC 5.4. OBJECTIVE PHYSICAL EXAMINATION: VITAL SIGNS: Please see below. General: No acute distress, Alert Eyes: Normal sclera, EOMI, RAJI HENT: Atraumatic, neck supple, moist mucous membranes Cardiovascular: Normal rate, normal rhythm. No murmurs appreciated. Pulmonary: Clear to auscultation b/l, no wheezing GI: Soft, nontender, nondistended Skin: Warm and dry Neuro: CN grossly intact. No focal deficits. Strengths equal b/l. Psych: oriented x 3 LABORATORY DATA, IMAGING STUDIES, MICROBIOLOGY: Please see below. DVT prophylaxis ordered?: Lovenox ASSESSMENT AND PLAN: 1. Sepsis - Likely 2/2 UTI. Severe hypotension, lactic acidosis and febrile on presentati on but no leukocytosis. - Urine + E. coli. - Blood culture NTD. - c/w Rocephin. 2. DM - On metformin at home. Hold at this time. C/w ISS. 3. HLD - Resume statin. 4. Hematuria - Suspect likely 2/2 cystitis. - No abdominal discomfort suggestive of stones. - c/w treatment for UTI. CT abdomen pelvis showed no evidence of any stones. Disposition: May be d/c home whenever medically ready. Not pending PT or CW. VS, I&O, 24H, Fishbone Vital Signs/I&O Vital Signs Date Time Temp Pulse Resp B/P (MAP) Pulse Ox O2 Delivery O2 Flow Rate FiO2 04/20/19 04:00 99.8 78 16 129/59 (82) 100 Room Air I&O- Last 24 Hours up to 6 AM 04/20/19 05:59 Intake Total 2595 ml Output Total 1050 ml Balance 1545 ml Laboratory Data 24H LABS Laboratory Tests 2 04/19/19 20:22: Bedside Glucose (Misc Panel) 102 04/20/19 04:22: Anion Gap 6L, Glomerular Filtration Rate > 60.0, Calcium Level 8.0L CBC/BMP Laboratory Tests 04/20/19 04:22 Microbiology Microbiology 04/17/19 Urine Culture - Final, Complete Escherichia Coli 04/17/19 Blood Culture - Preliminary, Resulted No Growth after 48 hours. All Specime... 04/17/19 Blood Culture - Preliminary, Resulted No Growth after 48 hours. All Specime... BLAYNE LIU MD Apr 20, 2019 12:20
[2019-04-20 18:00] VITALS: BP 130/63
[2019-04-20] MEDS: cefTRIAXone SOD 2 GM in D5W MINI-BAG PLUS 50 ML IV SCH (18:41)
[2019-04-20 20:00] VITALS: BP 126/63
[2019-04-20] MEDS: ACETAMINOPHEN TAB 650MG DOSE (2X325MG) PO PRN (20:02)
[2019-04-21 04:00] VITALS: BP 138/64
[2019-04-21 04:48] LABS: HEMATOCRIT 31.7 % (42.0-52.0); HEMOGLOBIN 10.8 g/dl (13.5-17.5); MEAN CORPUSCULAR HEMOGLOBIN 31.9 pg (27.0-33.0); MEAN CORPUSCULAR HGB CONC 34.1 g/dl (32.0-36.5); MEAN CORPUSCULAR VOLUME 93.5 fl (80.0-96.0); PLATELET COUNT, AUTOMATED 178 10^3/uL (150-450); RED BLOOD COUNT 3.39 10^6/uL (4.30-6.10); WHITE BLOOD COUNT 5.4 10^3/uL (4.0-10.0)
[2019-04-21 05:16] LABS: BLOOD UREA NITROGEN 7 MG/DL (7-18); CALCIUM LEVEL 8.7 MG/DL (8.8-10.2); CARBON DIOXIDE LEVEL 25 MEQ/L (21-32); CHLORIDE LEVEL 112 MEQ/L (98-107); CREATININE FOR GFR 0.92 MG/DL (0.70-1.30); GLOMERULAR FILTRATION RATE > 60.0 (>49); GLUCOSE, FASTING 94 MG/DL (70-100); POTASSIUM SERUM 3.7 MEQ/L (3.5-5.1); SODIUM LEVEL 142 MEQ/L (136-145)
[2019-04-21 08:09] VITALS: BP 130/63
[2019-04-21] MEDS: DOCUSATE SODIUM 100 MG CAP PO SCH (09:05)
[2019-04-21] MEDS: ENOXAPARIN 40 MG/0.4 ML SYRINGE (J1650) SC SCH (09:05)
[2019-04-21] MEDS: OMEPRAZOLE 20 MG CAP PO SCH (09:05)
[2019-04-21] MEDS: ATORVASTATIN 20 MG TAB PO SCH (09:06)
[2019-04-21] MEDS: SUCRALFATE 1 GM TAB PO SCH (09:06)
[2019-04-21] MEDS ORDERED: BACT800T5 PO (10:13)
[2019-04-21] MEDS: cefTRIAXone SOD 2 GM in D5W MINI-BAG PLUS 50 ML IV SCH (10:53)
--- NOTE | 2019-04-21 10:56 | DS.PDOC ---
Discharge Summary General Date of Admission Apr 17, 2019 at 21:47 Date of Discharge 04/21/19 Discharge Summary PROCEDURES PERFORMED DURING STAY: [None]. ADMITTING DIAGNOSES: 1. UTI 2. Sepsis 3. DM 4. HLD DISCHARGE DIAGNOSES: 1. UTI 2. Sepsis 3. DM 4. HLD 5. hematuria COMPLICATIONS/CHIEF COMPLAINT: Hypotension, Sepsis. HISTORY OF PRESENT ILLNESS: "This is a 68 years old -[place] male with past medical history of anemia, emphysema, hyperlipidemia, active smoker presented with chief complaints of fever, chills, nausea, abdominal pain since early this morning when he woke up at 4 AM. Abdominal pain is dull, lower and lower in location, nonradiating, persistent not not relieved with metastases and not exacerbated by food, not associated with vomiting, diarrhea. Denies chest pain, dizziness, focal weakness, etc." HOSPITAL COURSE: Patient was treated for sepsis 2/2 UTI with rapid improvement in clinical status. He remained comfortable without any complaints of discomfort. BP stab elized after initial treatment. Course of hospitalization also complicated by reports of hematuria. Reported has had similar issue in the past when he has an infection previously. He denies any significant abdominal pain and CT abdomen showed no evidence of stone. He reports feeling well and requests to go home today. Discussed with urology communication equipment mechanic, patient can be followed as outpatient. Patient is to be discharged home to f/u PMD and Urology as outpatient and complete course of PO antibiotics. DISCHARGE MEDICATIONS: Please see below. ALLERGIES: Please see below. PHYSICAL EXAMINATION ON DISCHARGE: VITAL SIGNS: Please see below. General: No acute distress, Alert Eyes: Normal sclera, EOMI, RAJI HENT: Atraumatic, neck supple, moist mucous membranes Cardiovascular: Normal rate, normal rhythm. No murmurs appreciated. Pulmonary: Clear to auscultation b/l, no wheezing GI: Soft, nontender, nondistended Skin: Warm and dry Neuro: CN grossly intact. No focal deficits. Strengths equal b/l. Psych: oriented x 3 LABORATORY DATA: Please see below. IMAGING: CT Abdomen- Bladder: Mild wall thickening of the urinary bladder is likely secondary to underdistention. Cystitis is not excluded. Reproductive: Unremarkable as visualized. Bones/joints: Degenerative spondylosis of the lumbar spine. 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 Soft tissues: Unremarkable. IMPRESSION: 1. No acute abnormality. 2. Mild wall thickening of the urinary bladder is likely secondary to underdistention. Cystitis is not excluded. ACTIVITY: [As tolerated]. DIET: Consistent carbohydrate DISCHARGE PLAN: f/u PMD and Urology complete course of antibiotics DISPOSITION: Home. DISCHARGE INSTRUCTIONS: f/u PMD and Urology complete course of antibiotics ITEMS TO FOLLOWUP ON ON OUTPATIENT: None DISCHARGE CONDITION: [Stable]. TIME SPENT ON DISCHARGE: 33 minutes. Vital Signs/I&Os Vital Signs Date Time Temp Pulse Resp B/P (MAP) Pulse Ox O2 Delivery O2 Flow Rate FiO2 04/21/19 08:09 98.9 80 17 130/63 (85) 99 Room Air I&O- Last 24 Hours up to 6 AM 04/21/19 06:00 Intake Total 1320 ml Output Total 525 ml Balance 795 ml Laboratory Data Labs 24H Laboratory Tests 2 04/21/19 04:26: Nucleated Red Blood Cells % (auto) 0.0, Anion Gap 5L, Glomerular Filtration Rate > 60.0, Calcium Level 8.7L CBC/BMP Laboratory Tests 04/21/19 04:26 Microbiology Microbiology 04/17/19 Urine Culture - Final, Complete Escherichia Coli 04/17/19 Blood Culture - Preliminary, Resulted No Growth after 72 hours. All specime... 04/17/19 Blood Culture - Preliminary, Resulted No Growth after 72 hours. All specime... Discharge Medications Scheduled Atorvastatin Calcium (Atorvastatin Calcium) 80 Mg Tablet, 80 MG PO DAILY, (Reported) Metformin HCl (Metformin HCl) 500 Mg Tablet, 1,000 MG PO BIDWM, (Reported) Omeprazole (Omeprazole) 20 Mg Capsule.dr, 20 MG PO BID, (Reported) Sucralfate (Sucralfate) 1 Gm Tablet, 1 GM PO DAILY, (Reported) Sulfamethoxazole/Trimethoprim (Bactrim Ds Tablet) 1 Each Tablet, 1 TAB PO BID Take on 04/22 Scheduled PRN Dicyclomine HCl (Dicyclomine HCl) 10 Mg Capsule, 10 MG PO WM PRN for IRRITABLE BOWEL, (Reported) Polyethylene Glycol 3350 (Polyethylene Glycol 3350) 510 Gm Powder, 17 GM PO DAILY PRN for CONSTIPATION, (Reported) Allergies Coded Allergies: No Known Allergies (Unverified , 12/07/18) BLAYNE LIU MD Apr 21, 2019 10:56
== END 2019-04-21 11:50 | disposition home health service (06) | DRG 872 ==
LOC: M ED 15:14 → EDBD 15:14 → M ED INP 21:47 → M ICU 04-18 01:10
PROVIDERS: ADMIT Internal Medicine; ATTEND Internal Medicine
DX: A41.9 Sepsis, unspecified organism (principal); E87.2 Acidosis; N30.91 Cystitis, unspecified with hematuria; D64.9 Anemia, unspecified; B96.20 Unspecified Escherichia coli [E. coli] as the cause of diseases classified elsewhere; E11.9 Type 2 diabetes mellitus without complications; J43.9 Emphysema, unspecified; E78.5 Hyperlipidemia, unspecified; F17.200 Nicotine dependence, unspecified, uncomplicated; Z79.84 Long term (current) use of oral hypoglycemic drugs; Z79.899 Other long term (current) drug therapy

== ENCOUNTER → 2019-06-17 | Outpatient (CLI) | payer MEDICARE ==
[~2019-06-17] MED LIST changes: +BACT800T5 PO; +METF500T13 PO; +PEG1POW PO; +PEGPOW PO
[2019-06-17 13:32] LABS: HEMATOCRIT 41.9 % (42.0-52.0); HEMOGLOBIN 13.7 g/dl (13.5-17.5); MEAN CORPUSCULAR HEMOGLOBIN 31.3 pg (27.0-33.0); MEAN CORPUSCULAR HGB CONC 32.7 g/dl (32.0-36.5); MEAN CORPUSCULAR VOLUME 95.7 fl (80.0-96.0); PLATELET COUNT, AUTOMATED 229 10^3/uL (150-450); RED BLOOD COUNT 4.38 10^6/uL (4.30-6.10)
[2019-06-17 14:02] LABS: ALT/SGPT 31 U/L (12-78); BILIRUBIN,TOTAL 0.8 MG/DL (0.2-1.0); BLOOD UREA NITROGEN 10 MG/DL (7-18); CALCIUM LEVEL 9.4 MG/DL (8.8-10.2); CARBON DIOXIDE LEVEL 31 MEQ/L (21-32); CHLORIDE LEVEL 105 MEQ/L (98-107); CHOLESTEROL LEVEL 153 MG/DL (<200); CHOLESTEROL RISK RATIO 3.558 (<5); CREATININE FOR GFR 1.06 MG/DL (0.70-1.30); GLOMERULAR FILTRATION RATE > 60.0 (>49); GLUCOSE, FASTING 90 MG/DL (70-100); HDL CHOLESTEROL 43 MG/DL (>40); LDL CHOLESTEROL 89 MG/DL (<100); NON-HDL-C 110 MG/DL; POTASSIUM SERUM 3.8 MEQ/L (3.5-5.1); SODIUM LEVEL 141 MEQ/L (136-145); TOTAL PROTEIN 7.8 GM/DL (6.4-8.2); TRIGLYCERIDES LEVEL 103 MG/DL (<150)
[2019-06-17 14:11] LABS: HEMOGLOBIN A1c 6.3 %
== END ==
LOC: M PLALAB 08:36
PROVIDERS: ATTEND Physician Assistant
DX: A04.8 Other specified bacterial intestinal infections (principal); D64.9 Anemia, unspecified; E78.5 Hyperlipidemia, unspecified; R73.01 Impaired fasting glucose

== ENCOUNTER → 2019-12-11 | Outpatient (REF) | payer MEDICARE, MEDICAID ==
[2019-12-11 11:47] LABS: BASO # 0.1 10^3/uL (0.0-0.2); BASO % 0.8 % (0.0-1.0); EOS # 0.1 10^3/uL (0.0-0.5); EOS % 2.2 % (0.0-3.0); HEMATOCRIT 39.9 % (42.0-52.0); HEMOGLOBIN 13.6 g/dl (13.5-17.5); LYMPH # 2.9 10^3/uL (1.5-5.0); LYMPH % 47.9 % (24.0-44.0); MEAN CORPUSCULAR HEMOGLOBIN 32.5 pg (27.0-33.0); MEAN CORPUSCULAR HGB CONC 34.1 g/dl (32.0-36.5); MEAN CORPUSCULAR VOLUME 95.5 fl (80.0-96.0); MONO # 0.5 10^3/uL (0.0-0.8); MONO % 8.2 % (0.0-5.0); NEUTROPHILS # 2.4 10^3/uL (1.5-8.5); NEUTROPHILS % 40.7 % (36.0-66.0); PLATELET COUNT, AUTOMATED 236 10^3/uL (150-450); RED BLOOD COUNT 4.18 10^6/uL (4.30-6.10)
[2019-12-11 11:54] LABS: ALBUMIN 3.9 GM/DL (3.2-5.2); ALT/SGPT 33 U/L (12-78); BILIRUBIN,TOTAL 0.7 MG/DL (0.2-1.0); BLOOD UREA NITROGEN 10 MG/DL (7-18); CALCIUM LEVEL 9.4 MG/DL (8.8-10.2); CARBON DIOXIDE LEVEL 32 MEQ/L (21-32); CHLORIDE LEVEL 108 MEQ/L (98-107); CREATININE FOR GFR 1.04 MG/DL (0.70-1.30); GLOMERULAR FILTRATION RATE > 60.0 (>42); GLUCOSE, FASTING 99 MG/DL (70-100); LIPASE 55 U/L (73-393); POTASSIUM SERUM 4.1 MEQ/L (3.5-5.1); SODIUM LEVEL 141 MEQ/L (136-145); TOTAL PROTEIN 7.3 GM/DL (6.4-8.2)
[2019-12-11 12:54] LABS: HEMOGLOBIN A1c 6.2 %
== END ==
LOC: M SFHCPLAZ 09:27
PROVIDERS: ATTEND Physician Assistant
DX: K21.9 Gastro-esophageal reflux disease without esophagitis (principal); D64.9 Anemia, unspecified; R73.01 Impaired fasting glucose; R10.10 Upper abdominal pain, unspecified

== ENCOUNTER → 2020-12-21 | Outpatient (REF) | payer MEDICARE, MEDICAID ==
[~2020-12-21] MED LIST changes: +OMEP-173 PO; -OMEP-218 PO; -PEG1POW PO; -PEGPOW PO; +POLY17PO18 PO; +POLY510P14 PO
[2020-12-21 14:49] LABS: ALBUMIN 3.8 GM/DL (3.2-5.2); ALT/SGPT 28 U/L (12-78); BILIRUBIN,TOTAL 0.6 MG/DL (0.2-1.0); BLOOD UREA NITROGEN 12 MG/DL (7-18); CALCIUM LEVEL 9.3 MG/DL (8.8-10.2); CARBON DIOXIDE LEVEL 29 MEQ/L (21-32); CHLORIDE LEVEL 105 MEQ/L (98-107); CHOLESTEROL LEVEL 152 MG/DL (<200); CHOLESTEROL RISK RATIO 3.707 (<5); CREATININE FOR GFR 1.04 MG/DL (0.70-1.30); FREE T4 1.02 NG/DL (0.76-1.46); GLOMERULAR FILTRATION RATE > 60.0 (>42); GLUCOSE, FASTING 103 MG/DL (70-100); HDL CHOLESTEROL 41 MG/DL (>40); LDL CHOLESTEROL 93 MG/DL (<100); NON-HDL-C 111 MG/DL; POTASSIUM SERUM 4.3 MEQ/L (3.5-5.1); SODIUM LEVEL 140 MEQ/L (136-145); TOTAL PROTEIN 7.5 GM/DL (6.4-8.2); TRIGLYCERIDES LEVEL 90 MG/DL (<150)
[2020-12-21 15:12] LABS: HEMATOCRIT 43.2 % (42.0-52.0); HEMOGLOBIN 13.8 g/dl (13.5-17.5); MEAN CORPUSCULAR HEMOGLOBIN 30.9 pg (27.0-33.0); MEAN CORPUSCULAR HGB CONC 31.9 g/dl (32.0-36.5); MEAN CORPUSCULAR VOLUME 96.9 fl (80.0-96.0); PLATELET COUNT, AUTOMATED 220 10^3/uL (150-450); RED BLOOD COUNT 4.46 10^6/uL (4.30-6.10); WHITE BLOOD COUNT 5.6 10^3/uL (4.0-10.0)
== END ==
LOC: M SFHCPLAZ 09:41
PROVIDERS: ATTEND Physician Assistant
DX: R73.01 Impaired fasting glucose (principal); K21.9 Gastro-esophageal reflux disease without esophagitis; E78.2 Mixed hyperlipidemia; R63.0 Anorexia
CPT/HCPCS: 36415; 80053; 80061; 83036; 84439; 84443; 85027; G0463

== ENCOUNTER → 2021-10-06 | Outpatient (CLI) | payer MEDICARE, MEDICAID ==
[2021-10-06 13:54] LABS: ALBUMIN 3.9 GM/DL (3.2-5.2); ALT/SGPT 34 U/L (12-78); BILIRUBIN,TOTAL 1.1 MG/DL (0.2-1.0); BLOOD UREA NITROGEN 15 MG/DL (7-18); CALCIUM LEVEL 9.2 MG/DL (8.8-10.2); CARBON DIOXIDE LEVEL 30 MEQ/L (21-32); CHLORIDE LEVEL 105 MEQ/L (98-107); CHOLESTEROL LEVEL 142 MG/DL (<200); CHOLESTEROL RISK RATIO 3.463 (<5); CREATININE FOR GFR 1.09 MG/DL (0.70-1.30); GLOMERULAR FILTRATION RATE > 60.0 (>42); GLUCOSE, FASTING 93 MG/DL (70-100); HDL CHOLESTEROL 41 MG/DL (>40); LDL CHOLESTEROL 82 MG/DL (<100); NON-HDL-C 101 MG/DL; POTASSIUM SERUM 4.1 MEQ/L (3.5-5.1); SODIUM LEVEL 140 MEQ/L (136-145); TOTAL PROTEIN 7.3 GM/DL (6.4-8.2); TRIGLYCERIDES LEVEL 95 MG/DL (<150)
[2021-10-06 14:01] LABS: HEMOGLOBIN A1c 6.1 %
== END ==
LOC: M PLALAB 09:17
PROVIDERS: ATTEND Nurse Practitioner Adult Health
DX: R73.01 Impaired fasting glucose (principal); E78.2 Mixed hyperlipidemia

== ENCOUNTER → 2021-12-14 | Outpatient (CLI) | payer MEDICARE, MEDICAID ==
[2021-12-14 13:59] LABS: HEMATOCRIT 39.7 % (42.0-52.0); HEMOGLOBIN 13.2 g/dl (13.5-17.5); MEAN CORPUSCULAR HEMOGLOBIN 31.5 pg (27.0-33.0); MEAN CORPUSCULAR HGB CONC 33.2 g/dl (32.0-36.5); MEAN CORPUSCULAR VOLUME 94.7 fl (80.0-96.0); PLATELET COUNT, AUTOMATED 208 10^3/uL (150-450); RED BLOOD COUNT 4.19 10^6/uL (4.30-6.10); WHITE BLOOD COUNT 5.4 10^3/uL (4.0-10.0)
[2021-12-14 14:26] LABS: ALBUMIN 3.7 GM/DL (3.2-5.2); ALT/SGPT 29 U/L (12-78); AMYLASE 56 U/L (25-115); BILIRUBIN,TOTAL 0.7 MG/DL (0.2-1.0); BLOOD UREA NITROGEN 13 MG/DL (7-18); CALCIUM LEVEL 10.1 MG/DL (8.8-10.2); CARBON DIOXIDE LEVEL 27 MEQ/L (21-32); CHLORIDE LEVEL 107 MEQ/L (98-107); CREATININE FOR GFR 1.12 MG/DL (0.70-1.30); GLOMERULAR FILTRATION RATE > 60.0 (>42); GLUCOSE, FASTING 105 MG/DL (70-100); LIPASE 74 U/L (73-393); POTASSIUM SERUM 4.4 MEQ/L (3.5-5.1); SODIUM LEVEL 141 MEQ/L (136-145); TOTAL PROTEIN 7.2 GM/DL (6.4-8.2)
== END ==
LOC: M PLALAB 10:53
PROVIDERS: ATTEND Nurse Practitioner Adult Health
DX: R10.13 Epigastric pain (principal)

== ENCOUNTER → 2021-12-23 | Outpatient (CLI) | payer MEDICARE, MEDICAID ==
[~2021-12-23] MED LIST changes: +GASTROGRAFIN SOLUTION 30ML (Q9963) As Ordered ONE; +ISOVUE-370 76% 100ML VIAL As Ordered ONE
== END ==
LOC: M RAD 14:05
PROVIDERS: ATTEND Nurse Practitioner Adult Health
DX: R10.13 Epigastric pain (principal)
CPT/HCPCS: 74178; Q9963; Q9967

== ENCOUNTER → 2023-06-15 | Outpatient (CLI) | payer MEDICARE, MEDICAID ==
[~2023-06-15] MED LIST changes: +DICY-61 PO; -DICY10CA13 PO; -GASTROGRAFIN SOLUTION 30ML (Q9963) As Ordered ONE; -ISOVUE-370 76% 100ML VIAL As Ordered ONE
[2023-06-15 13:48] LABS: HEMATOCRIT 41.6 % (42.0-52.0); MEAN CORPUSCULAR HEMOGLOBIN 32.6 pg (27.0-33.0); MEAN CORPUSCULAR HGB CONC 33.7 g/dl (32.0-36.5); MEAN CORPUSCULAR VOLUME 96.7 fl (80.0-96.0); PLATELET COUNT, AUTOMATED 209 10^3/uL (150-450); WHITE BLOOD COUNT 5.2 10^3/uL (4.0-10.0)
[2023-06-15 14:05] LABS: ALBUMIN 3.9 G/DL (3.2-5.2); ALKALINE PHOSPHATASE 63 U/L (46-116); ALT/SGPT 23 U/L (7.0-40); AST/SGOT 19 U/L (<34); BILIRUBIN,TOTAL 0.9 MG/DL (0.3-1.2); BLOOD UREA NITROGEN 14 MG/DL (9-23); CALCIUM LEVEL 10.1 MG/DL (8.3-10.6); CARBON DIOXIDE LEVEL 29 MMOL/L (20-31); CHLORIDE LEVEL 106 MMOL/L (98-107); CHOLESTEROL LEVEL 141 MG/DL (<200); CHOLESTEROL RISK RATIO 3.47 (<5); CREATININE FOR GFR 1.04 MG/DL (0.70-1.30); GLOMERULAR FILTRATION RATE > 60.0 (>42); GLUCOSE, FASTING 96 MG/DL (74-106); HDL CHOLESTEROL 40.6 MG/DL (>40); LDL CHOLESTEROL 86.6 MG/DL (<100); NON-HDL-C 100.4 MG/DL; POTASSIUM SERUM 4.5 MMOL/L (3.5-5.1); SODIUM LEVEL 144 MMOL/L (136-145); TOTAL PROTEIN 7.2 G/DL (5.7-8.2); TRIGLYCERIDES LEVEL 69 MG/DL (<150)
[2023-06-15 14:08] LABS: FERRITIN 136.8 NG/ML (10.5-307.3)
[2023-06-15 14:13] LABS: HEMOGLOBIN A1c 5.8 % (4.0-6.0)
== END ==
LOC: M PLALAB 09:16
PROVIDERS: ATTEND Nurse Practitioner Adult Health
DX: Z00.00 Encounter for general adult medical examination without abnormal findings (principal); J43.9 Emphysema, unspecified; E78.5 Hyperlipidemia, unspecified; R73.01 Impaired fasting glucose; D50.9 Iron deficiency anemia, unspecified

== ENCOUNTER → 2023-10-19 | Outpatient (CLI) | payer MEDICARE, MEDICAID ==
[2023-10-19 13:28] LABS: HEMOGLOBIN 13.3 g/dl (13.5-17.5); MEAN CORPUSCULAR HEMOGLOBIN 32.5 pg (27.0-33.0); MEAN CORPUSCULAR HGB CONC 33.3 g/dl (32.0-36.5); MEAN CORPUSCULAR VOLUME 97.8 fl (80.0-96.0); PLATELET COUNT, AUTOMATED 217 10^3/uL (150-450); RED BLOOD COUNT 4.09 10^6/uL (4.30-6.10); WHITE BLOOD COUNT 5.9 10^3/uL (4.0-10.0)
[2023-10-19 13:45] LABS: ALBUMIN 3.6 G/DL (3.2-5.2); ALKALINE PHOSPHATASE 65 U/L (46-116); ALT/SGPT 21 U/L (7.0-40); AST/SGOT 20 U/L (<34); BILIRUBIN,TOTAL 0.7 MG/DL (0.3-1.2); BLOOD UREA NITROGEN 16 MG/DL (9-23); CALCIUM LEVEL 9.5 MG/DL (8.3-10.6); CARBON DIOXIDE LEVEL 32 MMOL/L (20-31); CHLORIDE LEVEL 105 MMOL/L (98-107); CREATININE FOR GFR 0.99 MG/DL (0.70-1.30); GLOMERULAR FILTRATION RATE > 60.0 (>42); GLUCOSE, FASTING 92 MG/DL (74-106); POTASSIUM SERUM 4.5 MMOL/L (3.5-5.1); SODIUM LEVEL 140 MMOL/L (136-145)
[2023-10-19 13:56] LABS: HEMOGLOBIN A1c 5.7 % (4.0-6.0)
== END ==
LOC: M PLALAB 10:55
PROVIDERS: ATTEND Nurse Practitioner Adult Health
DX: J43.9 Emphysema, unspecified (principal); E78.5 Hyperlipidemia, unspecified; R73.01 Impaired fasting glucose

== ENCOUNTER → 2023-11-09 | Outpatient (CLI) | payer MEDICARE, MEDICAID | LOC: M WHC 08:01 | PROVIDERS: ATTEND Nurse Practitioner Adult Health | DX: R10.13 Epigastric pain (principal) ==